=== PATIENT | female | born 1960 | race Asian ===

== ENCOUNTER 2018-02-15 01:10 | Emergency (ER) | payer BC ==
[~2018-02-15] VITALS: Ht 162.6 cm; Wt 52.2 kg
[2018-02-15 01:30] VITALS: BP_SYST 149
[2018-02-15] MEDS ORDERED: METO25TA6 PO (01:38)
[2018-02-15] MEDS ORDERED: SERT50TA12 PO (01:38)
[2018-02-15] MEDS ORDERED: ENALAPRILAT DIHYDRATE 1.25 MG/ML VIAL IVP ONE (02:45)
[2018-02-15 03:13] LABS: CALCIUM 8.4 mg/dL (8.4-11.0); CREATININE 0.67 mg/dL (0.55-1.30); POTASSIUM 3.4 mmol/L (3.5-5.1)
[2018-02-15 03:16] LABS: BASOPHILS # (AUTO) 0.1 K/uL (0.0-0.2); BASOPHILS % (AUTO) 2.2 % (0.0-2.0); EOSINOPHILS % (AUTO) 0.6 % (0.0-4.0); HEMATOCRIT 39.7 % (36-48); HEMOGLOBIN 13.5 g/dL (12.0-16.0); LYMPHOCYTES # (AUTO) 1.3 K/uL (1.0-5.5); LYMPHOCYTES % (AUTO) 21.5 % (20.5-51.5); MEAN CORPUSCULAR HEMOGLOBIN 32 pg (27-31); MEAN CORPUSCULAR HGB CONC 34 % (32-36); MEAN CORPUSCULAR VOLUME 93 fL (79.0-98.0); MONOCYTES # (AUTO) 0.3 K/uL (0.0-1.0); MONOCYTES % (AUTO) 5.2 % (1.7-9.3); NEUTROPHILS # (AUTO) 4.1 K/uL (1.8-7.7); NEUTROPHILS % (AUTO) 70.5 % (40.0-70.0); PLATELET COUNT (AUTO) 272 K/uL (130-430); RED BLOOD CELL COUNT(AUTO) 4.28 MIL/uL (4.2-6.2); RED CELL DISTRIBUTION WIDTH 12.5 % (9.0-15.0); WHITE BLOOD COUNT (AUTO) 5.8 K/uL (4.8-10.8)
[2018-02-15 03:18] LABS: ALBUMIN 3.7 g/dL (3.4-4.8); TOTAL BILIRUBIN 0.6 mg/dL (0.0-1.0)
[2018-02-15 03:20] VITALS: BP_SYST 138
[2018-02-15 03:35] LABS: PROTHROMBIN TIME 10.4 SECS (9.5-12.5)
== END 2018-02-15 03:20 | disposition home or self-care (01) ==
LOC: SED 01:10
DX: I10 Essential (primary) hypertension (principal); R20.2 Paresthesia of skin
CPT/HCPCS: 36415; 80053; 83880; 84484; 85025; 85379; 85610-TC; 85730-TC; 93005; 96374; 99284